=== PATIENT | female | born 2000 | race Hispanic/Latino ===

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

== ENCOUNTER 2018-10-19 13:38 | Outpatient (CLI) | payer OTHER ==
--- NOTE | 2018-10-19 15:34 | ULT ---
OBSTETRIC SONOGRAM: 10/19/18 HISTORY: Second trimester gestation. evaluation. FINDINGS: Multiple transabdominal sonographic views of the uterus show a single intrauterine gestation in cephalic presentation. Cervix is closed and 5.7 cm. No gross intracranial abnormalities. spi ne and kidneys are intact as visualized. Three vessel cord shows a normal insertion. Four chamber hea rt shows motion at 165 beats per minute. Three vessel cord shows a normal insertion. Grade 0 placenta is posterior. Measurements are as follows: Biparietal diameter 30 weeks, 0 days. Head circumference 30 weeks, 2 days. Abdominal circumference 20 weeks, 5 days. Femur length 27 weeks, 1 day. Estimated date of delivery based on today's sonogram is 01/03/19. [place] 51 percentile. IMPRESSION: Single viable intrauterine gestation with estimated gestational age based on today's sonogram of 29 w eeks, 1 day. POS: [facility]
== END 2018-10-19 13:39 | disposition home or self-care (01) ==
LOC: BICULT 13:38
PROVIDERS: ATTEND Family Medicine
DX: Z34.83 Encounter for supervision of other normal pregnancy, third trimester (principal); Z3A.29 29 weeks gestation of pregnancy
CPT/HCPCS: 76805

== ENCOUNTER 2018-10-31 14:26 | Day surgery (SDC) | payer OTHER ==
[2018-10-31 15:09] VITALS: BMI 37.2
--- NOTE | 2018-10-31 15:19 | PDOC.FPROB ---
FMR OB H&P: HPI - History of Present Illness Chief Complaint: Recent Fall Indentification: 18 year old at 29.3 wks History of Present Illness: 18 year old at 29.3 wks presents after sustaining a fall yesterday. Patient states that around 14:00 yesterday she slipped down one step. She was able to catch herself on the door, but still fell to her bottom. She denies any trauma to her abdomen. Patient states that today, her bottom and pubic area are sore. She is able to ambulate without difficulty. Patient denies vaginal bleeding, vaginal discharge, LoF, or contractions. She was worried about her baby, so she decided to call the office and was told to come to the ER. Patient endorses positive movement. Primary Care Physician: Dr. Cheri Donato FMR OB H&P: Current - Care : 2 Para: 1001 Gestational age: 29.3 wks Due date: 01/13/2019 - OB Labs Blood type: O RH: positive Antibody Screen: negative GBS: unknown FMR OB H&P: History - Past Medical History PMH: Denies any significant PMH - OB History OB History: x1 at term - Surgical History Sx History: Denies - Social History Social History: Denies tobacco, alcohol, or drug use - Family History Family History: Insignificant FMR OB H&P: Medications - Current Home Medications: Medication Instructions Recorded Confirmed Type 21/Iron Fu/Folic Acid 1 tablet PO DAILY 09/11/17 10/31/18 History [ Complete Caplet] Allergies/Adverse Reactions: Allergies Allergy/AdvReac Type Severity Reaction Status Date / Time No Known Allergies Allergy Verified 09/28/17 23:19 FMR OB H&P: ROS - Review of Systems General: denies: fever/chills, weight/appetite/sleep changes Eyes: denies: vision changes, double vision ENT: denies: nasal congestion, rhinorrhea, sore throat Cardiovascular: denies: chest pain, palpitation, edema Respiratory: denies: cough, congestion, shortness of breath Gastrointestinal: denies: abdominal pain, nausea, vomiting, diarrhea, constipation Genitourinary (Female): denies: dysuria, vaginal discharge, vaginal pain, vaginal bleeding, contractions, vaginal pressure Musculoskeletal: reports: pain (pubic symphisis and coccyx) Neurologic: denies: numbness, syncope Integumentary: denies: itching, rash, lesions Endocrine: denies: cold intolerance Hematologic/Lymphatic: denies: prolonged or excessive bleeding, enlarged lymph nodes Psychological: denies: depression, anxiety FMR OB H&P: Vital Signs - Maternal Vital signs: BP 110/61 Pulse 73 Afebrile - Heart Tones Baseline: 150 Variability: moderate Acceleration: present Deceleration: absent Category: category 1 [place] contractions every: Very few, irregular FMR OB H&P: Physical Exam - Physical Exam General: NAD, awake, alert and oriented HEENT: EOMI, MMM, grossly normal vision, grossly normal hearing Neck: supple, FROM Heart: RRR, normal S1/S2, no murmurs/rubs/gallops, pulses present General: CTAB, no respiratory distress, good air movement Abdomen: soft, gravid, non-tender, bowel sound present Musculoskeletal: pulses present, FROM in all four extremities Neurological: no tremor, no focal deficit Skin: no rash, capillary refill <2 seconds Lymphatic: no unusual bruising or bleeding, no purpura Psychiatric: intact recent and remote memory, good judgement and insight, normal mood and affect FMR OB H&P: A/P - Problem List (1) Fall (on) (from) other stairs and steps, initial encounter Status: Acute Code(s): W10.8XXA - FALL (ON) (FROM) OTHER STAIRS AND STEPS, INITIAL ENCOUNTER (2) Intrauterine Status: Acute Code(s): Z34.90 - ENCNTR FOR SUPRVSN OF NORMAL , UNSP, UNSP TRIMESTER Disposition: 18 year old at 29.3 wks with history of recent fall 1. History of recent fall - See HPI for details - No abdominal trauma - Patient able to brace herself before impact - tracing Category I - No abdominal tenderness - Very few, irregular contractions; patient does not feel them at all - No vaginal bleeding - Incident occurred >48 hours previous 2. sIUP - At 29.3 wks - Uncomplicated Dispo: Stable. Onset of accident >24 hours previous. No evidence of abruption. heart tracing with accelerations and Category I. Plan to d/c patient home with return precautions to include onset of contractions, vaginal bleeding, LoF. Discussion: Date/Time: 10/31/18 [id number] This H&P was discussed with Dr. Carey who agrees with the above documentation and plan. Signature: Rama Sevilla, PGY-2 Addendum - Attending - Attending Attestation Date/Time: 11/01/18 1992 I personally evaluated the patient and discussed the management with Dr. Sevilla I agree with the History, Examination, Assessment and Plan documented above with any addition or exceptions noted below.
== END 2018-10-31 17:12 | disposition home or self-care (01) ==
LOC: L&D/OP 14:26
PROVIDERS: ATTEND Family Medicine
DX: O99.89 Other specified diseases and conditions complicating pregnancy, childbirth and the puerperium (principal); R10.2 Pelvic and perineal pain; M79.18 Myalgia, other site; Z3A.29 29 weeks gestation of pregnancy; Z79.899 Other long term (current) drug therapy; W10.8XXA Fall (on) (from) other stairs and steps, initial encounter
CPT/HCPCS: 99282

== ENCOUNTER 2019-01-04 21:00 | Inpatient (IN) | payer OTHER ==
[2019-01-12] MEDS ORDERED: Ibuprofen 800 MG TAB PO PRN (00:52)
[2019-01-12] MEDS ORDERED: Misoprostol 200 MCG TAB PR PRN (00:52)
[2019-01-12] MEDS ORDERED: Promethazine HCl 25 MG/ML VIAL IM PRN ×2 (00:52→09:35)
[2019-01-12] MEDS ORDERED: Acetaminophen/Codeine 30-300mg Tablet PO PRN ×2 (00:52→12:59)
[2019-01-12] MEDS ORDERED: HYDROcodone/Acetaminophen 5/325 mg Tablet PO PRN (00:52)
[2019-01-12] MEDS ORDERED: Acetaminophen 500 MG TAB PO PRN (00:52)
[2019-01-12] MEDS ORDERED: Methylergonovine 0.2 MG/ML VIAL IM PRN (00:52)
[2019-01-12] MEDS ORDERED: Lidocaine 1% (PF) 30 ML VIAL SC PRN (00:52)
[2019-01-12] MEDS ORDERED: Butorphanol Tartrate 1 MG/ML VIAL SLOW IVP PRN (00:52)
[2019-01-12] MEDS ORDERED: Zolpidem Tartrate 5 MG TAB PO PRN (00:52)
[2019-01-12] MEDS ORDERED: Ondansetron PF 4 MG/2 ML Vial IVP PRN ×3 (00:52→12:59)
[2019-01-12] MEDS: Lactated Ringer's 1,000 ML IV SCH (01:00)
[2019-01-12] MEDS ORDERED: NS w/ Oxytocin 10 units 500 ML IV SCH ×2 (01:00)
[2019-01-12] MEDS ORDERED: Penicillin G Potassium 5 MILL.UNITS in Sodium Chloride 0.9% 100 ML IVPB SCH (01:00)
[2019-01-12 01:03] VITALS: BMI 40.1
[2019-01-12 01:15] LABS: Hemoglobin 13.2 g/dL (12.0-16.0); Mean Corpuscular HGB CONC 34.9 g/dL (32.0-36.0); Mean Corpuscular Hemoglobin 30.2 pg (25.0-35.0); Mean Corpuscular Volume 86.5 fL (78.0-98.0); Mean Platelet Volume 8.2 fL (7.4-10.4); Platelet Count 183 thou/uL (130-400); RBC Distribution Width 13.6 % (11.5-14.5); Red Blood Cell (RBC) Count 4.37 mill/uL (4.00-5.20); White Blood Cell (WBC) Count 7.6 thou/uL (4.8-10.8)
[2019-01-12 01:54] LABS: HBSAg Index 0.29 S/CO (0-0.99); Hep B Surf Ag Non-Reactive S/CO (NonReactive)
[2019-01-12] MEDS: Misoprostol 100 MCG TAB VAG SCH ×2 (02:05→05:37)
[2019-01-12 05:15] LABS: Syphilis Antibody Nonreactive (Nonreactive); Syphilis Antibody Index 0.03 S/CO (<1.00 Non-Reactive)
[2019-01-12] MEDS: Penicillin G 2.5 MILL.units 2.5 MILL.UNITS in Premix Bag 1 BAG IVPB SCH (05:55)
[2019-01-12] MEDS ORDERED: Fentanyl 4 mcg/Bup 0.1% Cadd 100 ML ONE (06:45)
[2019-01-12] MEDS: NS / Oxytocin 40 units/1000ml 1,000 ML IV PRN ×3 (08:25→10:52)
[2019-01-12] MEDS ORDERED: Naloxone HCl 0.4 mg/ml Vial IVP PRN ×2 (09:35)
[2019-01-12] MEDS ORDERED: Acetaminophen 325 MG TAB PO PRN (09:35)
[2019-01-12] MEDS ORDERED: Eucerin (Mineral Oil/Petrolatum,White) 30 gm Jar TOP PRN (09:35)
[2019-01-12] MEDS ORDERED: ePHEDrine/0.9% NaCl/PF SYRINGE 50 mg/10 ml SLOW IVP PRN (09:35)
[2019-01-12] MEDS ORDERED: Lactated Ringer's 500 ML IV PRN (09:35)
[2019-01-12] MEDS ORDERED: diphenhydrAMINE 50 MG/ML VIAL IVP PRN (09:35)
[2019-01-12] MEDS ORDERED: Communication Order-Pharmacy FS SCH (09:45)
[2019-01-12] MEDS ORDERED: Fentanyl 4 mcg/Bupivacaine 0.1% Cassette 100 ML EPIDURAL SCH (09:45)
[2019-01-12] MEDS ORDERED: Bicitra 30 ML UDCUP ONE (10:49)
[2019-01-12] MEDS ORDERED: Bupivacaine/Epinephrine 0.25% 30 ML VIAL ONE (11:11)
[2019-01-12] MEDS ORDERED: Lanolin Ointment 7 GM TUBE TOP PRN (12:59)
[2019-01-12] MEDS ORDERED: Benzocaine-Menthol 82.5 ML CAN TOP PRN (12:59)
[2019-01-12] MEDS ORDERED: NS / Oxytocin 40 units/1000ml 1,000 ML IV SCH (12:59)
[2019-01-12] MEDS ORDERED: diphenhydrAMINE 25 MG CAP PO PRN (12:59)
[2019-01-12] MEDS ORDERED: Preparation H Ointment 28 GM TUBE PR PRN (12:59)
[2019-01-12] MEDS ORDERED: Milk Of Magnesia 30 ML UDCUP PO PRN (12:59)
[2019-01-12] MEDS ORDERED: Bisacodyl 10 MG SUPP PR PRN (12:59)
[2019-01-12] MEDS: Ibuprofen 800 MG TAB PO SCH ×2 (16:30→21:54)
[2019-01-12] MEDS: Docusate Calcium (SURFAK) 240 MG CAP PO SCH ×2 (17:51→21:55)
[2019-01-12] MEDS: Ferrous Sulfate 325 MG TAB PO SCH ×2 (17:51→18:04)
[2019-01-12] MEDS: Prenatal Vitamin 1 TAB PO SCH (17:52)
[2019-01-12] MEDS: HYDROcodone/Acetaminophen 5/325 mg Tablet PO PRN (20:14)
[2019-01-13] MEDS: Ibuprofen 800 MG TAB PO SCH ×3 (06:14→22:05)
[2019-01-13] MEDS: Misoprostol 100 MCG TAB VAG SCH (06:37)
[2019-01-13] MEDS: Lactated Ringer's 1,000 ML IV SCH (06:38)
[2019-01-13] MEDS: Penicillin G 2.5 MILL.units 2.5 MILL.UNITS in Premix Bag 1 BAG IVPB SCH (06:39)
[2019-01-13] MEDS: Ferrous Sulfate 325 MG TAB PO SCH ×2 (07:37→15:27)
[2019-01-13] MEDS: Prenatal Vitamin 1 TAB PO SCH (08:50)
[2019-01-13] MEDS: Docusate Calcium (SURFAK) 240 MG CAP PO SCH ×2 (08:50→22:04)
[2019-01-13] MEDS: HYDROcodone/Acetaminophen 5/325 mg Tablet PO PRN (12:37)
[2019-01-14] MEDS: Ibuprofen 800 MG TAB PO SCH (05:52)
[2019-01-14] MEDS: HYDROcodone/Acetaminophen 5/325 mg Tablet PO PRN ×2 (05:59→10:51)
[2019-01-14 08:23] VITALS: BP 109/73; TEMP 97.6
[2019-01-14] MEDS: Docusate Calcium (SURFAK) 240 MG CAP PO SCH (10:51)
[2019-01-14] MEDS: Prenatal Vitamin 1 TAB PO SCH (10:51)
[2019-01-14] MEDS ORDERED: Measles/Mumps/Rubella 10 MCG/0.5 ML VIAL SC ONE (11:45)
[2019-01-14] MEDS ORDERED: Sodium Chloride 0.9% 0 ML ONE (11:47)
== END 2019-01-14 12:45 | disposition home or self-care (01) | DRG 807 ==
LOC: L&D 01-12 00:20 → 3SE 01-12 12:39
PROVIDERS: ADMIT Family Medicine; ATTEND Family Medicine
PROC: 10E0XZZ Delivery of Products of Conception, External Approach (ICD-10-PCS; principal; 2019-01-12)
PROC: 3E0P7VZ Introduction of Hormone into Female Reproductive, Via Natural or Artificial Opening (ICD-10-PCS; 2019-01-12)
DX: O99.824 Streptococcus B carrier state complicating childbirth (principal); Z37.0 Single live birth; O36.63X0 Maternal care for excessive fetal growth, third trimester, not applicable or unspecified; O48.0 Post-term pregnancy; Z3A.40 40 weeks gestation of pregnancy
CPT/HCPCS: 36415; 85027; 86780; 86850; 86900; 86901; 87340; 90707; J2540; J3490